=== PATIENT | male | born 1980 | race Caucasian/White ===

== ENCOUNTER → 2019-07-07 | Outpatient (CLI) | payer OTHER ==
--- NOTE | 2019-07-07 16:06 | RADIOLOGY REPORT (SQ) ---
EXAM DESCRIPTION: U/S THYROID/SFT TISS HD NECK COMPLETED DATE/TIME: 07/07/2019 3:43 pm REASON FOR STUDY: MASS COMPARISON: None. TECHNIQUE: Dynamic and static grayscale images acquired of the localized site of clinical concern an d recorded on PACS. Additional selected color Doppler and spectral images recorded. SITE OF CONCERN: Soft tissues lateral to the right eye. LIMITATIONS: None. FINDINGS: Solid hypoechoic mass measuring 0.5 x 1.1 x 1.3 cm. No vascularity on Doppler imaging. IMPRESSION: SOLID SOFT TISSUE MASS LATERAL TO THE RIGHT EYE. TECHNICAL DOCUMENTATION: JOB ID: [id number] [employer]- All Rights Reserved Reading location - IP/workstation name: [email or web address]
== END ==
LOC: RAD 14:59
PROVIDERS: ATTEND Family Medicine
DX: H57.89 Other specified disorders of eye and adnexa (principal)
CPT/HCPCS: 76536